=== PATIENT | female | born 1945 | race Caucasian/White ===

== ENCOUNTER → 2022-03-19 | Day surgery (SDC) | payer MEDICARE, OTHER ==
[~2022-03-19] VITALS: Ht 154.9 cm; Wt 59.0 kg
[~2022-03-19] MED LIST: ASPIRIN EC81 MG PO; CELEBREX **OUT100 MG PO; ENBREL25 MG/0.5 SC; FAMOTIDINE40 MG PO; FOLIC ACID1 MG PO; ONDANSETRON HCL4 MG PO; PREDNISONE5 MG PO; PROBIOTIC250 MG PO; RESTASIS1 EACH EYEBOTH; RHEUMATREX2.5 MG PO; VITAMIN D310 MC3 PO; ZOCOR10 MG PO
[2022-03-19 09:58] LABS: HCT 42.4 % (37.0-47.0); HGB 13.8 g/dl (12.5-16.0); MCH 33.3 pg (25.0-31.0); MCHC 32.5 g/dL (32.0-36.0); MCV 102.2 fL (78.0-100.0); MPV 10.6 fL (6.0-9.5); RBC 4.15 M/uL (4.20-5.40); RDW 14.2 % (11.5-14.0); WBC 7.7 K/uL (4.0-10.5)
[2022-03-19 10:43] LABS: ALBUMIN 3.7 g/dL (3.4-5.0); BILIRUBIN - TOTAL 0.6 mg/dL (0.2-1.0); BUN/CREAT RATIO (CALC) 26.1 RATIO; CREATININE 0.88 mg/dL (0.51-0.95); GLOBULIN (CALCULATION) 3.7 g/dL; POTASSIUM 3.9 mmol/L (3.5-5.1); TOTAL PROTEIN 7.4 g/dL (6.4-8.2)
== END | disposition home or self-care (01) ==
LOC: FAS 09:00
PROVIDERS: Surgery
DX: Z12.11 Encounter for screening for malignant neoplasm of colon (principal); K29.50 Unspecified chronic gastritis without bleeding; K21.00 Gastro-esophageal reflux disease with esophagitis, without bleeding; K22.2 Esophageal obstruction; K58.9 Irritable bowel syndrome, unspecified; K63.89 Other specified diseases of intestine; E78.5 Hyperlipidemia, unspecified; M06.9 Rheumatoid arthritis, unspecified; Z86.010 Personal history of colon polyps; Z98.51 Tubal ligation status; Z79.82 Long term (current) use of aspirin
CPT/HCPCS: 43239; 43249; G0121; 36415; 80053; C1726; J2704; J7120